=== PATIENT | female | born 1985 | race African-American/Black ===

== ENCOUNTER 2019-11-14 18:20 | Inpatient (IN) | payer OTHER ==
[~2019-11-14] VITALS: Ht 157.5 cm; Wt 65.8 kg
--- NOTE | 2019-11-14 20:40 | NUR ---
PT C/C "IM AND BLEEDING A LOT", UNK DATE, +CRAMPS, +N/-V VAGINAL BLEED TODAY. NO ACUTE DISTRESS NOTED. WILL CONTINUE TO MONITOR
--- NOTE | 2019-11-14 20:57 | NUR ---
URINE COLLECTED AND SENT TO LAB FOR TESTING.
--- NOTE | 2019-11-14 21:43 | NUR ---
ULTRASOUND AT BEDSIDE
[2019-11-14 22:05] LABS: BASOPHILS # (AUTO) 0.1 /CMM (0.0-0.2); BASOPHILS % (AUTO) 1.1 % (0.0-2.0); EOSINOPHILS % (AUTO) 1.6 % (0.0-6.0); HEMATOCRIT 37 % (33-45); HEMOGLOBIN 12.1 g/dL (11.5-14.8); LYMPHOCYTES # (AUTO) 2.7 /CMM (0.8-4.8); LYMPHOCYTES % (AUTO) 38.3 % (20.0-44.0); MEAN CORPUSCULAR HGB CONC 33 g/dl (31.0-36.0); MEAN CORPUSCULAR VOLUME 89 fL (82-100); MONOCYTES # (AUTO) 0.6 /CMM (0.1-1.30); MONOCYTES % (AUTO) 7.7 % (2.0-12.0); NEUTROPHILS # (AUTO) 3.7 /CMM (1.8-8.9); NEUTROPHILS % (AUTO) 51.3 % (43.0-81.0); PLATELET COUNT (AUTO) 266 /CMM (150-450); RED BLOOD CELL COUNT(AUTO) 4.18 MIL/uL (4.0-5.2); WHITE BLOOD COUNT (AUTO) 7.1 K/uL (4.3-11.0)
[2019-11-14 23:09] LABS: CALCIUM, SERUM 9.4 mg/dL (8.5-10.1); CREATININE 0.6 mg/dL (0.6-1.3); POTASSIUM 4.4 mmol/L (3.5-5.1)
[2019-11-14 23:35] LABS: ALBUMIN 3.8 g/dL (3.4-5.0); BILIRUBIN,TOTAL 0.4 mg/dL (0.2-1.0); TOTAL PROTEIN, SERUM 8.4 g/dL (6.4-8.2)
--- NOTE | 2019-11-15 01:11 | NUR ---
ROOM 205
[2019-11-15] MEDS ORDERED: ACETAMINOPHEN 325 MG TABLET PO ONE (01:30)
--- NOTE | 2019-11-15 01:33 | NUR ---
REPORT GIVEN TO ORSARIO CANNON
[2019-11-15 02:03] LABS: APPEARANCE,URINE SL CLOUDY (CLEAR); BILIRUBIN,URINE NEGATIVE (NEGATIVE); BLOOD, URINE LARGE Ery/uL (NEGATIVE); COLOR,URINE YELLOW (YELLOW); KETONES,URINE NEGATIVE (NEGATIVE); LEUKOCYTE ESTERASE ,URINE NEGATIVE (NEGATIVE); NITRITE, URINE NEGATIVE (NEGATIVE); PH,URINE 6.5 (5.0-8.0); PROTEIN,URINE NEGATIVE (NEGATIVE); UGLUCOSE NEGATIVE (NEGATIVE); UROBILINOGEN,URINE 0.2 EU/dL (0.2)
[2019-11-15 02:14] LABS: BACTERIA,URINE Many /HPF (None Seen); SQUAMOUS EPITHELIAL CELL,UR Moderate /HPF (None Seen)
--- NOTE | 2019-11-15 03:25 | NUR ---
[employer] LEAD NOTES RECEIVED REPORT FROM GAIL AT 0130. ARRIVED ON THE UNIT AT 0325 VIA GURNEY. VITALS STABLE UPON ADMISSION, RECORDED. NO SIGNS OF RESPIRATORY DISTRESS, DENIES SOB. CHECKLIST FOR BELONGINGS DONE BY PASCUAL GONZALEZ. PATIENT WAS ABLE TO ANSWER MY QUESTIONS. PATIENT A/O X 4, STATES SHE HAS NO PAIN AT THIS TIME. PATIENT IS ADMITTED FOR POSSIBLE ECTOPIC , OBSERVATION AT THIS TIME. THERE IS NO EVIDENCE OF HEMORRHANGE OR SHOCK AT THIS TIME. NO SKIN ISSUES NOTED. SAFETY PRECAUTIONS IMPLEMENTED; CALL LIGHT WITHIN REACH, BED LOWEST POSITION, BED LOCKED, BILATERAL UPPER SIDE RAILS UP. WILL CONTINUE TO MONITOR.
[2019-11-15 03:30] VITALS: BP 126/78
--- NOTE | 2019-11-15 04:12 | NUR ---
RN NOTES TRIED REACHING OUT TO DR. SHIVAM SMITH FOR FURTHER INSTRUCTIONS AND ORDERS. AWAITING RESPONSE FROM DR. SMITH. WILL CONTINUE TO MONITOR.
--- NOTE | 2019-11-15 04:26 | NUR ---
RN NOTES WAS ABLE TO CONTACT DR. SMITH FOR INSTRUCTIONS AND ORDERS. DR. SMITH STATES TO KEEP PATIENT NPO AT THIS TIME. SHE STATES SHE WILL SEE HER IN THE AM TO DISCUSS PLAN OF CARE WITH HER AND STAFF. NO OTHER ORDERS AT THIS TIME.
--- NOTE | 2019-11-15 06:45 | NUR ---
RN CLOSING NOTES PATIENT IS CURRENTLY SLEEPING, EASILY AWAKENED. ON RA, TOLERATING WELL. NO SIGNS OF RESPIRATORY DISTRESS, NO SOB NOTED. PATIENT REMAINS STABLE. NO COMPLAINTS OF PAIN OR DISCOMFORT AT THIS TIME. NO EVIDENCE OF HEMORRHAGE OR SHOCK AT THIS TIME. PATIENT STATES ONLY A LITTLE BIT OF BLOOD APPEARS WHEN SHE URINATES. SHE STATES IT IS A LITTLE BIT OF BLOOD. IV SITE INTACT, PATENT, NO SIGNS OF INFECTION/INFILTRATION. SAFETY PRECAUTIONS IMPLEMENTED; CALL LIGHT WITHIN REACH, BED LOCKED, BED LOWEST POSITION, BILATERAL UPPER SIDE RAILS UP. WILL ENDORSE TO DAY SHIFT NURSE FOR CONTINUITY OF CARE.
--- NOTE | 2019-11-15 07:20 | NUR ---
MS RN OPENING NOTES RECEIVED PT IN BED, ASLEEP, EASILY AROUSED A/O X4. PT TOLERATING RA, WITH NO ACUTE RESPIRATORY DISTRESS NOTED. PT DENIES ANY PAIN OR DISCOMFORT AT THIS TIME. ALSO DENIES ANY QUESTIONS OR CONCERNS. PIC TO RAC G20, FLUSHED WITH NS, INTACT AND OPERATIONAL. PT KEPT COMFORTABLE. CALL LIGHT KEPT WITHIN REACH. PT'S BED IN LOWEST, LOCKED POSITION WITH SR X3. WILL CONTINUE PLAN OF CARE.
--- NOTE | 2019-11-15 07:47 | NUR ---
MS RN NOTES PT SEEN AND EVALUATED BY DR NAIDU/KATTY. PT CAN GO HOME TODAY AND WILL HAVE F/U APPOINTMENT WITH DR NAIDU IN HER CLINIC IN A WEEK. ALSO, PT CAN EAT BREAKFAST BEFORE LEAVING PER MD.
[2019-11-15 08:00] VITALS: BP 119/71
--- NOTE | 2019-11-15 08:00 | NUR ---
MS RN NOTES INFORMED MD/KR REGARDING DR NAIDU CLEARANCE FOR DISCHARGE. ORDER DISCHARGE PLACED PER KR. PT AWARE.
--- NOTE | 2019-11-15 08:57 | NUR ---
MS DISCHARGE NOTES PT TO DISCHARGE TO HOME. PT TOLERATING RA, WITH NO ACUTER RESPIRATORY DISTRESS NOTED. PT DENIES ANY VAGINAL BLEEDING OR DISCOMFORT AT THE TIME OF DISCHARGE. PIV TO RAC G20 REMOVED AND APPLIED DRY DRESSING. DISCHARGE INSTRUCTIONS AND INVENTORY LIST REVIEWED AND SIGNED BY PATIENT. PER PT SHE WILL GO HOME BY HERSELF, DRIVE HERSELF WELL. SKIN ASSESSED, SKIN INTACT, PT DENIES ANY SKIN ISSUES. VITALS STABLE. PT AMBULATORY AND REFUSED WHEELCHAIR TO ESCORT IN THE LOBBY. PT LEFT THE UNIT AT 0850. ES/MARIE AND HOSPITALIST/KR AWARE OF DISCHARGE.
== END 2019-11-15 08:50 | disposition home or self-care (01) | DRG 833 ==
LOC: ER 18:26 → MEDSG2 11-15 03:12
PROVIDERS: ADMIT Obstetrics & Gynecology; ATTEND Internal Medicine
DX: O00.90 Unspecified ectopic pregnancy without intrauterine pregnancy (principal); Z3A.01 Less than 8 weeks gestation of pregnancy; Z98.890 Other specified postprocedural states
CPT/HCPCS: 36415; 76805-TC; 80048-TC; 80076-TC; 81000-TC; 84702-TC; 85025-TC; 85730-TC; 87081-TC; 87086-TC; G0378